=== PATIENT | male | born 1960 | race Caucasian/White ===

== ENCOUNTER → 2023-10-14 07:21 | Outpatient (REF) | payer BC, SELFPAY ==
[2023-10-14 08:24] LABS: HDL Cholesterol 45 mg/dl; LDL Cholesterol, Calculated 64 mg/dl; Total Cholesterol 144 mg/dl (50-199); Triglyceride 178 mg/dl (10-149); Very Low Density Lipoprotein 35 mg/dl (0-30)
== END ==
LOC: REG 07:21
PROVIDERS: ATTENDING PHYSICIAN Nurse Practitioner Family
DX: E78.2 Mixed hyperlipidemia (principal)
CPT/HCPCS: 36415; 80061

== ENCOUNTER → 2025-02-07 07:40 | Outpatient (REF) | payer BC, SELFPAY ==
[2025-02-07 09:10] LABS: Hematocrit 41.4 % (39.0-52.0); Hemoglobin 14.1 g/dL (13.0-18.0); Mean Corp Hgb Conc. 34.1 g/dL (33.0-37.0); Mean Corpuscular Volume 90.8 fL (80.0-94.0); Nucleated Red Blood Cells % 0 % (-); Platelet Count 173 10^3/uL (130-400); Red Cell Dist. Width 12.4 % (11.5-14.5)
[2025-02-07 09:57] LABS: ALT (SGPT) 19 U/L (0-50); AST (SGOT) 25 U/L (17-59); Albumin 4.7 g/dl (3.5-5.0); Alkaline Phosphatase 39 U/L (38-126); Blood Urea Nitrogen 18 mg/dl (9-20); Calcium 9.3 mg/dl (8.4-10.2); Carbon Dioxide 26 mmol/L (22-30); Chloride 105 mmol/L (98-107); Glucose 94 mg/dl (70-99); HDL Cholesterol 48 mg/dl; LDL Cholesterol, Calculated 161 mg/dl; Potassium 4.0 mmol/L (3.5-5.1); Sodium 139 mmol/L (135-145); Total Protein 7.2 g/dl (6.3-8.2); Very Low Density Lipoprotein 37 mg/dl (0-30); eGFR > 60.00
[2025-02-07 10:19] LABS: PSA, Total - Screen 0.50 ng/ml (0.0-4.0)
== END ==
LOC: REG 07:40
PROVIDERS: ATTENDING PHYSICIAN Nurse Practitioner Family; FAMILY PHYSICIAN Internal Medicine
DX: Z00.00 Encounter for general adult medical examination without abnormal findings (principal); Z12.5 Encounter for screening for malignant neoplasm of prostate
CPT/HCPCS: 36415; 80053; 80061; 84443; 85025; G0103